=== PATIENT | male | born 1975 | race Native Hawaiian/Other Pacific Islander ===

== ENCOUNTER 2020-11-27 16:01 | Outpatient (CLI) | payer BC, OTHER ==
[~2020-11-27 16:01] MED LIST: CETRAXAL0.2 % OT; FISH OIL1000 MG OR; MULTIVITAMI1 OR; STRATTERA80 MG OR; Z-PAK PO
== END 2020-11-27 20:01 | disposition home or self-care (01) ==
LOC: INF 16:01
PROVIDERS: ATTEND Internal Medicine
DX: Z23 Encounter for immunization (principal)
CPT/HCPCS: 96372

== ENCOUNTER 2020-12-17 15:48 | Outpatient (CLI) | payer BC, OTHER | END 2020-12-17 21:38 | disposition home or self-care (01) | LOC: INF 15:48 | PROVIDERS: ATTEND Internal Medicine | DX: Z23 Encounter for immunization (principal) | CPT/HCPCS: 96372 ==

== ENCOUNTER 2021-05-01 10:15 | Outpatient (CLI) | payer BC, OTHER | END 2021-05-01 22:35 | disposition home or self-care (01) | LOC: LAB 10:15 | PROVIDERS: ATTEND Internal Medicine | DX: Z20.822 Contact with and (suspected) exposure to COVID-19 (principal) | CPT/HCPCS: 87635; G2023; U0003 ==

== ENCOUNTER 2023-06-29 09:36 | Outpatient (CLI) | payer BC | END 2023-06-29 18:52 | disposition home or self-care (01) | LOC: CT 09:36 | PROVIDERS: ATTEND Internal Medicine | DX: R31.9 Hematuria, unspecified (principal) ==